=== PATIENT | female | born 2000 | race Hispanic/Latino ===

== ENCOUNTER 2019-11-12 15:30 | Emergency (ER) | payer SELFPAY ==
[2019-11-12] MEDS ORDERED: ACETAMINOPHEN 325 MG TAB ONE (16:07)
[2019-11-12 16:49] LABS: RAPID GROUP A STREP POSITIVE (NEGATIVE)
[2019-11-12 18:18] LABS: APPEARANCE,URINE Clear (CLEAR); BILIRUBIN,URINE Negative (NEGATIVE); COLOR,URINE Yellow (YELLOW); GLUCOSE, URINE (UA) Negative (NEGATIVE); KETONES,URINE Trace mg/dL (NEGATIVE); LEUKOCYTE ESTERASE ,URINE Small (NEGATIVE); NITRATE,URINE Negative (NEGATIVE); OCCULT BLOOD,URINE Negative (NEGATIVE); PROTEIN,URINE Negative (NEGATIVE)
[2019-11-12 18:22] LABS: HCG,QUAL RESULT NEGATIVE (NEGATIVE)
[2019-11-12 19:35] LABS: RBC,URINE None Seen /HPF (0-1)
[2019-11-12 19:36] LABS: BACTERIA,URINE Many /HPF (None Seen); SQUAMOUS EPITHELIAL CELL,UR 0-2 /HPF (0-2)
== END 2019-11-12 18:07 | disposition home or self-care (01) ==
LOC: EDH 15:30
DX: J02.0 Streptococcal pharyngitis (principal)
CPT/HCPCS: 81001; 81025; 87804; 87880

== ENCOUNTER 2024-10-29 19:00 | Emergency (ER) | payer BC ==
[~2024-10-29] VITALS: Ht 165.1 cm; Wt 49.4 kg
--- NOTE | 2024-10-29 19:22 | ERN ---
ED Note History of Present Illness Stated Complaint: VOMITING, DIARRHEA Time Seen by MD: 19:06 Dictation: PATIENT IS A 24-YEAR-OLD FEMALE HERE, STATES SHE IS APPROXIMATELY 10 WEEKS . SHE STATES SHE HAS BEEN HAVING EMESIS FOR THE LAST 4-5 WEEKS, IS SEEING DR. BARTH OUT [facility]. SHE STATES HE HAS HAD HER ON ZOFRAN AND JUST SAW HIS PA LAST WEEK HOWEVER NO NEW MEDICATIONS WERE PRESCRIBED. SHE DENIES ABDOMINAL CRAMPING, NO VAGINAL BLEEDING NO FLANK PAIN NO CONTRACTIONS Allergies: Coded Allergies: No Known Allergies (Unverified Allergy, Unknown, 10/29/24) Past Medical History : 1 Para: 0 RN Note Reviewed/Agreed w/PFSH: Yes Review of System Dictation CONSTITUTIONAL: NEGATIVE EXCEPT FOR HPI HEAD/FACE: NEGATIVE EXCEPT FOR HPI EENT: NEGATIVE EXCEPT FOR HPI RESPIRATORY: NEGATIVE EXCEPT FOR HPI GASTROINTESTINAL/ABDOMINAL: NEGATIVE EXCEPT FOR HPI NAUSEA VOMITING GENITOURINARY: NEGATIVE EXCEPT FOR HPI MUSCULOSKELETAL: NEGATIVE EXCEPT FOR HPI INTEGUMENTARY: NEGATIVE EXCEPT FOR HPI NEUROLOGICAL/PSYCH: NEGATIVE EXCEPT FOR HPI HEMATOLOGIC/LYMPHATIC: NEGATIVE EXCEPT FOR HPI ALL SYSTEMS NEGATIVE, EXCEPT NOTED ABOVE. 13 POINT REVIEW OF SYSTEMS ASSESSED AND ALL NEGATIVE EXCEPT FOR ABOVE. Initial Vital Sign VS Vital Signs Date Time Temp Pulse Resp B/P (MAP) Pulse Ox O2 Delivery O2 Flow Rate FiO2 10/29/24 19:10 98.1 74 20 107/68 100 Room Air Physical Exam Dictation VITAL SIGNS REVIEWED GENERAL APPEARANCE: ALERT, ORIENTED X 3, NO ACUTE DISTRESS, WELL DEVELOPED, NOURISHED. HEAD AND FACE: NON-TRAUMATIC. EYES: PERRL, PINK CONJUNCTIVAS, EYELID NO TRAUMA, ANTERIOR CHAMBER WITH ARCUS SENILIS. EARS: PINNAS INTACT AND NO SIGNS OF TRAUMA OR ERYTHEMA EAR CANALS CLEAR AND NO DISCHARGE TM NO ERYTHEMA NOSE: NO DISCHARGE, NO BLEEDING. OROPHARYNX: MOUTH NORMAL, TONGUE PINK, PHARYNX CLEAR,NO ERYTHEMA, TONSILS NO EXUDATES, NO ABSCESSES NOTED, MUCOUS MEMBRANE MOIST NECK: SUPPLE, NON-TENDER, NO THYROMEGALY, NO MASSES, NO JVD, NO BRUITS BREAST:DEFERRED CHEST:NO TENDERNESS, NO CREPITUS, NO PARADOXICAL MOVEMENT, NO RETRACTIONS LUNGS:CLEAR, WELL-VENTILATED, SYMMETRIC, NO RALES, NO WHEEZING, NO RHONCHI, NO STRIDOR, GOOD BREATH SOUNDS BILATERALLY HEART: REGULAR RATE, REGULAR RHYTHM, NO MURMUR, NO GALLOPS VASCULAR: NO PERIPHERAL EDEMA, ABDOMEN: SOFT, POSITIVE BOWEL SOUNDS, NONDISTENDED, NO GUARDING, NONTENDER, NO REBOUND, NO MASSES NO HEPATOMEGALY, NO SPLENOMEGALY, NO EMMANUEL'S SIGN, NO HERNIAS. RECTAL: DEFERRED GENITAL: DEFERRED NEUROLOGICAL: NORMAL SPEECH, MOTOR FUNCTION INTACT, SENSORY FUNCTION INTACT MUSCULOSKELETAL: NECK NONTENDER, FULL RANGE OF MOTION, BACK NONTENDER, FULL RANGE OF MOTION, EXTREMITIES: NONTENDER, FULL RANGE OF MOTION SKIN: COLOR PINK, DRY, NO TURGOR, NO RASH, NO LACERATIONS, NO ABRASIONS, NO CONTUSIONS. LYMPHATIC: DEFERRED Results (Laboratory/Radiology) Laboratory/Radiology Laboratory Tests Test 10/29/24 19:25 White Blood Count 8.1 K/uL (4.8-10.8) Red Blood Count 4.14 MIL/uL (4.00-5.50) Hemoglobin 13.8 g/dL (12.0-16.0) Hematocrit 38.9 % (36-48) Mean Corpuscular Volume 94.0 fL (79-99) Mean Corpuscular Hemoglobin 33.3 pg (27.0-33.0) H Mean Corpuscular Hemoglobin Concent 35.5 g/dL (32.0-36.0) Red Cell Distribution Width 12.5 % (11.0-15.5) Platelet Count 178 K/uL (130-400) Mean Platelet Volume 10.9 fL (7.5-10.5) H Immature Granulocyte % (Auto) 0.2 % (0-1) Neutrophils (%) (Auto) 65.3 % (40.0-77.0) Lymphocytes (%) (Auto) 26.7 % (21.0-51.0) Monocytes (%) (Auto) 6.4 % (3.0-13.0) Eosinophils (%) (Auto) 0.9 % (0.0-8.0) Basophils (%) (Auto) 0.5 % (0.0-5.0) Neutrophils # (Auto) 5.3 K/uL (1.8-7.7) Lymphocytes # (Auto) 2.2 K/uL (1.0-4.8) Monocytes # (Auto) 0.5 K/uL (0.1-1.0) Eosinophils # (Auto) 0.07 K/uL (0.00-0.70) Basophils # (Auto) 0.04 K/uL (0.00-0.20) Absolute Immature Granulocyte (auto 0.02 K/uL (0-1) Nucleated Red Blood Cells 0.0 % (0.0-0.19) Sodium Level 137 mmol/L (136-145) Potassium Level 3.6 mmol/L (3.5-5.1) Chloride Level 103 mmol/L (101-111) Carbon Dioxide Level 28 mmol/L (21-32) Blood Urea Nitrogen 6 mg/dL (7-18) L Creatinine 0.5 mg/dL (0.5-1.0) Glomerular Filtration Rate Calc 133 mL/min (>90) Random Glucose 87 mg/dL (70-105) Total Calcium 8.7 mg/dL (8.5-10.1) ED Course ED Course Orders Procedure Category Date Status Time Cbc With Differential LAB 10/29/24 Complete 19:17 0.9%Nacl 1000ml (Ns PHA 10/29/24 Complete 1000ml) 19:30 Ondansetron 4mg Inj PHA 10/29/24 Complete (Zofran 4mg Inj) 19:30 Basic Metabolic Panel LAB 10/29/24 Complete 19:17 *Nursing CPOE 10/29/24 Transmitted Communication: 19:17 Ondansetron Odt 4mg PHA 10/29/24 Verified Tab (Zofran 4mg Odt) 20:30 Current Medications Medications (Trade) Dose Ordered Sig/Nirav Route PRN Reason Start Time Stop Time Status Last Admin Dose Admin Ondansetron HCl (zoFRAN 4MG INJ) 4 mg ONCE ONCE IVP 10/29/24 19:30 10/29/24 19:47 DC Sodium Chloride 1,000 ml @ 0 mls/hr ONCE ONCE IV 10/29/24 19:30 10/29/24 19:47 DC Vital Signs Date Time Temp Pulse Resp B/P (MAP) Pulse Ox O2 Delivery O2 Flow Rate FiO2 10/29/24 19:10 98.1 74 20 107/68 100 Room Air 2019/PATIENT WILL BE DISCHARGED FROM WAITING ROOM THERE ARE NO ABNORMALITIES ON LAB EXCEPT MILD DEHYDRATION. SHE WILL BE GIVEN ZOFRAN ODT AND SENT HOME WITH SAME PRESCRIPTION AND TOLD TO SEE HER EQUIPMENT INSTALLATION PROFESSIONAL DOCTOR TOMORROW WITHOUT FAIL IN [place] Medical Decision Making MDM MEDICAL DISCHARGE MAKING BASED ON BASIC LABS AND CHECKING HEART TONES. PATIENT WITH MILD DEHYDRATION ONLY, NO ELECTROLYTE IMBALANCE WE WILL BE GIVEN ZOFRAN ODT FOR HYPEREMESIS GRAVIDARUM TOLD SEE HER EQUIPMENT INSTALLATION PROFESSIONAL DOCTOR TOMORROW WITHOUT FAIL IN [place] DX & DISP Disposition: Discharge Departure Impression: Primary Impression: Hyperemesis gravidarum before end of 22 week gestation with dehydration Condition: Stable Scripts Ondansetron (Ondansetron Odt) 4 Mg Tab.rapdis 4 MG PO Q6HPRN PRN for nausea, #16 TAB 0 Refills Prov: YUDELKA JO [employer]ODUCTION [employer] LEADER 10/29/24 Additional Instructions: FOLLOW-UP WITH PRIMARY CARE PROVIDER IN 1 TO 2 DAYS. TAKE MEDICATIONS DIRECTED HERE IN THE EMERGENCY ROOM. OKAY TO CONTINUE HOME MEDICATIONS UNLESS OTHERWISE DISCUSSED DURING YOUR VISIT IN THE EMERGENCY ROOM TODAY. RETURN TO YOUR NEAREST EMERGENCY ROOM IF SYMPTOMS WORSEN OR IF THERE IS NO IMPROVEMENT. CALL 911 IF YOU NEED IMMEDIATE ASSISTANCE. TAKE TYLENOL OR MOTRIN [id number] NEEDED AND IF NO CONTRAINDICATIONS ARE PRESENT. INCREASE ORAL HYDRATION. A WOUND CULTURE OR URINE CULTURE WAS ORDERED HERE IN THE EMERGENCY ROOM DEPARTMENT PLEASE FOLLOW-UP WITH PRIMARY CARE PROVIDER AND ADVISE THEM TO GET REPEAT PORTS FROM OUR FACILITY. IF YOU HAD ANY CHACE WRAP/SPLINTS THAT WERE APPLIED HERE, PLEASE DO NOT REMOVE THEM UNTIL YOU SEE YOUR PRIMARY CARE OR SPECIALTY. SUGGEST EATING SALTINE CRACKERS BEFORE GETTING OUT OF BED IN THE MORNING. EAT SMALL FREQUENT MEALS. SEE YOUR EQUIPMENT INSTALLATION PROFESSIONAL DOCTOR TOMORROW WITHOUT FAIL FOR FOLLOW UP AND MANAGEMENT Referrals: ZONIA GRANT DO (PCP) Time of Disposition: 20:22 I have reviewed the case, and I agree with, Diagnosis and Plan YUDELKA JO NP Oct 29, 2024 19:22
--- NOTE | 2024-10-29 19:23 | NUR ---
DELAY IN TRIAGE. PT IN LAB
[2024-10-29] MEDS ORDERED: ondanSETRON 4MG INJ IVP ONE (19:30)
[2024-10-29] MEDS ORDERED: 0.9%NACL 1000ML 1,000 ML IV ONE (19:30)
--- NOTE | 2024-10-29 19:31 | NUR ---
CALLED NO ANSWER
[2024-10-29 19:34] LABS: BASOPHILS # (AUTO) 0.04 K/uL (0.00-0.20); BASOPHILS % (AUTO) 0.5 % (0.0-5.0); EOSINOPHILS # (AUTO) 0.07 K/uL (0.00-0.70); EOSINOPHILS % (AUTO) 0.9 % (0.0-8.0); HEMATOCRIT 38.9 % (36-48); IMMATURE GRANULOCYTE ABSOLUTE 0.02 K/uL (0-1); LYMPHOCYTES # (AUTO) 2.2 K/uL (1.0-4.8); LYMPHOCYTES % (AUTO) 26.7 % (21.0-51.0); MEAN CORPUSCULAR HEMOGLOBIN 33.3 pg (27.0-33.0); MEAN CORPUSCULAR HGB CONC 35.5 g/dL (32.0-36.0); MONOCYTES # (AUTO) 0.5 K/uL (0.1-1.0); MONOCYTES % (AUTO) 6.4 % (3.0-13.0); NEUTROPHILS # (AUTO) 5.3 K/uL (1.8-7.7); NEUTROPHILS % (AUTO) 65.3 % (40.0-77.0); PLATELET COUNT (AUTO) 178 K/uL (130-400); RED BLOOD CELL COUNT(AUTO) 4.14 MIL/uL (4.00-5.50); RED CELL DISTRIBUTION WIDTH 12.5 % (11.0-15.5); WHITE BLOOD COUNT (AUTO) 8.1 K/uL (4.8-10.8)
[2024-10-29 19:41] LABS: CREATININE 0.5 mg/dL (0.5-1.0); POTASSIUM 3.6 mmol/L (3.5-5.1)
[2024-10-29] MEDS ORDERED: ONDA-243 PO (20:22)
[2024-10-29] MEDS: ondanSETRON ODT 4MG TAB SL ONE (20:31)
[2024-10-29 20:37] VITALS: BP 132/56; PULSE 88; RESP 20; TEMP 98; O2SAT 98
== END 2024-10-29 20:40 | disposition home or self-care (01) ==
LOC: EDH 19:00
DX: O21.0 Mild hyperemesis gravidarum (principal); O99.282 Endocrine, nutritional and metabolic diseases complicating pregnancy, second trimester; E86.0 Dehydration; Z3A.22 22 weeks gestation of pregnancy
CPT/HCPCS: 36415; 80048; 85025; 99283